=== PATIENT | male | born 1945 | race Caucasian/White ===

== ENCOUNTER 2017-04-03 10:54 | Outpatient (CLI) | payer MEDICARE, BC ==
[2017-04-03 18:57] LABS: BASOPHILS % (AUTO) 0.6 %; EOSINOPHILS # (AUTO) 0.4 10^3/uL (0.0-0.7); EOSINOPHILS % (AUTO) 6.3 %; HCT - HEMATOCRIT 44.6 % (42.0-52.0); HGB - HEMOGLOBIN 14.9 g/dL (14.0-18.0); LYMPHOCYTES # (AUTO) 1.8 10^3/uL (1.5-3.5); LYMPHOCYTES % (AUTO) 28.5 %; MEAN CORPUSCULAR HEMOGLOBIN 30.5 pg (27.0-31.0); MEAN CORPUSCULAR HGB CONC 33.4 g/dL (32.0-36.0); MEAN CORPUSCULAR VOLUME 91.4 fL (80.0-94.0); MEAN PLATELET VOLUME 8.5 fL (7.4-11.4); MONOCYTES # (AUTO) 0.5 10^3/uL (0.0-1.0); MONOCYTES % (AUTO) 7.8 %; NEUTROPHILS # (AUTO) 3.5 10^3/uL (1.5-6.6); NEUTROPHILS % (AUTO) 56.8 %; RED BLOOD COUNT 4.88 10^6/uL (4.70-6.10); RED CELL DISTRIBUTION WIDTH 14.5 % (12.0-15.0); UNCORRECTED WHITE BLOOD COUNT 6.2 x10^3/uL; WHITE BLOOD COUNT 6.2 x10^3/uL (4.8-10.8)
[2017-04-03 19:22] LABS: ALBUMIN/GLOBULIN RATIO 1.5 (1.0-2.2); BILIRUBIN,TOTAL 0.9 mg/dL (0.2-1.0); BUN - BLOOD UREA NITROGEN 17 mg/dL (6-20); CALCIUM 9.5 mg/dL (8.5-10.3); CARBON DIOXIDE - CO2 26 mmol/L (21-32); CHLORIDE 103 mmol/L (101-111); CHOL/HDL RATIO 3.1 (<5.0); CHOLESTEROL 150 mg/dL; GFR - MDRD 74 (>89); GLUCOSE 89 mg/dL (70-100); HDL CHOLESTEROL 48 mg/dL; LDL/HDL RATIO 1.6 (<3.6); POTASSIUM 3.7 mmol/L (3.5-5.0); SODIUM 137 mmol/L (135-145); TOTAL PROTEIN 7.7 g/dL (6.7-8.2); TRIGLYCERIDES 120 mg/dL; VLDL CHOLESTEROL 24 mg/dL
== END 2017-04-03 10:55 | disposition home or self-care (01) ==
LOC: LAB.F 10:54
PROVIDERS: ATTEND Physician Assistant Medical
DX: I10 Essential (primary) hypertension (principal); Z12.5 Encounter for screening for malignant neoplasm of prostate; E55.9 Vitamin D deficiency, unspecified; Z13.89 Encounter for screening for other disorder
CPT/HCPCS: 36415; 80053; 80061; 82306; 85025; G0103; 84153

== ENCOUNTER 2017-04-07 14:08 | Outpatient (CLI) | payer MEDICARE, BC ==
--- NOTE | 2017-04-12 12:32 | Ultrasound Report ---
BILATERAL INGUINAL ULTRASOUND: 04/07/2017 CLINICAL INDICATION: Palpable abnormality, right side. TECHNIQUE: Real-time scanning was performed with vaccine customer representative static images obtained. Ultrasound of the groins was performed. In the right groin, there is a right inguinal hernia, with neck measuring 1.4 cm. The hernia sac contains fat, without evidence of bowel herniation. Core Inspector images of the left side demonstrate no hernia. IMPRESSION: Right inguinal hernia, containing fat, without evidence of bowel herniation. TD: 04/07/2017 20:01 [facility]
== END 2017-04-07 14:09 | disposition home or self-care (01) ==
LOC: DI 14:08
PROVIDERS: ATTEND Physician Assistant Medical
DX: K40.90 Unilateral inguinal hernia, without obstruction or gangrene, not specified as recurrent (principal)
CPT/HCPCS: 76705

== ENCOUNTER 2017-05-29 14:05 | Outpatient (CLI) | payer MEDICARE, BC | END 2017-05-29 14:06 | disposition home or self-care (01) | LOC: SC 14:05 | PROVIDERS: ATTEND Nurse Practitioner Family | DX: G47.33 Obstructive sleep apnea (adult) (pediatric) (principal) | CPT/HCPCS: 99204; G0463; 99212 ==

== ENCOUNTER 2017-06-30 21:41 | Outpatient (CLI) | payer MEDICARE, BC | END 2017-06-30 21:42 | disposition home or self-care (01) | LOC: SC 21:41 | PROVIDERS: ATTEND Internal Medicine Pulmonary Disease | DX: G47.33 Obstructive sleep apnea (adult) (pediatric) (principal) | CPT/HCPCS: 95811 ==

== ENCOUNTER 2017-07-24 13:25 | Outpatient (CLI) | payer MEDICARE, BC | END 2017-07-24 13:26 | disposition home or self-care (01) | LOC: SC 13:25 | PROVIDERS: ATTEND Nurse Practitioner Family | DX: G47.33 Obstructive sleep apnea (adult) (pediatric) (principal) | CPT/HCPCS: 99214; G0463; 99212 ==

== ENCOUNTER 2017-09-05 13:14 | Outpatient (CLI) | payer MEDICARE, BC | END 2017-09-05 13:15 | disposition home or self-care (01) | LOC: SC 13:14 | PROVIDERS: ATTEND Nurse Practitioner Family | DX: G47.33 Obstructive sleep apnea (adult) (pediatric) (principal) | CPT/HCPCS: 99214 ==

== ENCOUNTER 2018-07-12 08:59 | Outpatient (CLI) | payer MEDICARE, BC ==
[2018-07-12 18:00] LABS: ALBUMIN 4.4 g/dL (3.2-5.5); ALBUMIN/GLOBULIN RATIO 1.6 (1.0-2.2); ALKALINE PHOSPHATASE 40 IU/L (42-121); ALT ALANINE AMINOTRANSFERASE 24 IU/L (10-60); AST ASPARTATE AMINOTRANSFERASE 21 IU/L (10-42); BILIRUBIN,TOTAL 0.9 mg/dL (0.2-1.0); BUN - BLOOD UREA NITROGEN 20 mg/dL (6-20); CALCIUM 9.2 mg/dL (8.5-10.3); CARBON DIOXIDE - CO2 27 mmol/L (21-32); CHLORIDE 103 mmol/L (101-111); CHOL/HDL RATIO 3.2 (<5.0); CHOLESTEROL 133 mg/dL; CREATININE 1.1 mg/dL (0.6-1.2); GFR - MDRD 66 (>89); GLUCOSE 101 mg/dL (70-100); HDL CHOLESTEROL 42 mg/dL; LDL CHOLESTEROL,CALCULATED 60 mg/dL; LDL/HDL RATIO 1.4 (<3.6); SODIUM 141 mmol/L (135-145); TOTAL PROTEIN 7.2 g/dL (6.7-8.2); VLDL CHOLESTEROL 31 mg/dL
== END 2018-07-12 09:00 | disposition home or self-care (01) ==
LOC: LAB.F 08:59
PROVIDERS: ATTEND Internal Medicine
DX: E78.5 Hyperlipidemia, unspecified (principal)
CPT/HCPCS: 36415; 80053; 80061; 83721

== ENCOUNTER 2018-09-18 12:57 | Outpatient (CLI) | payer MEDICARE, BC | END 2018-09-18 12:58 | disposition home or self-care (01) | LOC: SC 12:57 | PROVIDERS: ATTEND Nurse Practitioner Family | DX: G47.33 Obstructive sleep apnea (adult) (pediatric) (principal) | CPT/HCPCS: 99214; G0463; 99212 ==

== ENCOUNTER 2019-04-25 13:49 | Outpatient (CLI) | payer MEDICARE, BC | END 2019-04-25 13:50 | disposition EMS.NT | LOC: EMS 13:49 | PROVIDERS: ATTEND Surgery | DX: R07.9 Chest pain, unspecified (principal) ==

== ENCOUNTER 2019-09-18 11:52 | Outpatient (CLI) | payer MEDICARE, BC ==
--- NOTE | 2019-09-18 13:38 | SLEEP CARE CONSULTATION ---
Information from patient questionnaire entered by Arianna Collins. I have reviewed and concur with the information entered by Arianna Collins. This document represents the service I personally performed and the decisions made by me, Fior Avila, RN, MSN, DIRECTOR OF IN SERVICE EDUCATION. History of Present Illness Service Date and Time: 09/18/2019 1152 Previous diagnosis: Moderate, Obstructive Sleep Apnea-Hypopnea Syndrome AHI: 16.8 (in 2018) Reason for follow up: annual (last seen 2019) Equipment type: CPAP Equipment obtained from: [employer] (difficulty getting supplies and getting supplies online if unable to retrieve from [employer] - ie order for a year for tubing so ordered online) Mask style: Nasal Mask brand: Respironics (Dreamwear) Backup mask available: Yes (old mask ) Last cushion change: the 1st of the month Prior sleep studies: Yes Year and Where: 2018 - [facility] Type of Sleep Study: Polysomnography (Split night) CPAP Compliance Data - Data Reviewed with Patient Average duration of nightly device use: 6.5 Compliance rate %: 95 (180 days) Current pressure setting (cmH2O): 12 Humidity settin Heated hose settin Average residual AHI: 2.0 Average large leak: 25 min 55 sec Subjective Patient concerns: reports: mask leak noise (dislodges in sleep a couple times or more a night. ), nasal congestion (frequent and uses [employer] in evening - so does not have a problem using CPAP - he also changes his filter every two week. 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 denies: aerophagia, mask discomfort, air blowing in eyes, condensation in mask/hose, dry mouth, nose, throat, epistaxis Observed to snore while using device: No Current pressure setting perceived as: comfortable On therapy, patient: reports: sleeping better, awakening more refreshed, being more awake and alert during the day, more rested overall (this is significant - sleeps much better ). denies: drowsiness while driving Initial [place] Sleepiness Scale score: 7 (in 2018) Allergies and Home Medications Home medication list reviewed: No (no changes) Review of Systems Review of systems same as previous: Yes Physical Exam Height: 5 ft 5 in Weight: 195 lb Body Mass Index: 32.4 BMI Classification: Obese Impression and Plan 1. Obstructive Sleep Apnea-Hypopnea Syndrome, moderate, with good treatment compliance and good apnea control. On CPAP therapy, the patient has better sleep quality and is more rested overall. He is pleased with benefit of treatment. For patient supply concerns. Patient was notified that another DME can be used. I will have my curriculum development coordinator inform of DME options. A [facility] prescription will then be made. Patient advised to contact this office if he wishes to transfer after information given and he researches his choice. He is also advised to contact this office if further supply problems. To reduce increase in mask leaks after the past 3 months, he is advised to adjust headgear. He also stated he will try his back up headgear as this one a year old. Since his mask dislodges during the night a couple times a night that could be due to the way current headgear sitting, I will order the new adapted headgear that sits lower on base of skull. If continued problems with mask fit when he sleeps on his side, he was advised to consider a CPAP pillow which can be bought online. Patient has lost some weight. Currently patients BMI is 32.4 obesity class . I counseled patient how Obesity increases the risk of apnea, CPAP pressure requirements and overall health risks especially cardiovascular and diabetes. Thus patient is advised to continue to lose weight. Weight loss can be done with reducing portion size, reducing refined foods and balancing content with vegetables, fruit and protein. In addition tracking food intake will allow awareness of how to modify diet to achieve weight loss goals. Also eating more slowly will allow more awareness of food intake and enjoyment of food while assisting patient to modify intake at each meal. A diet consultation can be helpful in achieving optimal weight loss goals. Patient encouraged to discuss their weight loss goals with their PCP and consider a referral to a green marketer. The patient's CPAP pressure range should accommodate some weight loss.was changed to autoCPAP to accommodate for future weight loss. He does not want to try an autoCPAP range until he starts losing more weight. Symptoms to report for additional pressure adjustment discussed. Patient's apnea severity and rationale for treatment to reduce apnea, improve sleep quality and reduce hypertension, cardiovascular and cerebrovascular events was reviewed. * Continue CPAP pressure at 12 cmH2O * Transfer to new DME * New headgear * consider CPAP pillow * Notify me if snoring with mask or feeling that the pressure is too much or too little * Attempt to lose weight * Call this office if any problems using CPAP * Return for follow up in 1 year , or sooner if concerns arise Visit Type: Telehealth Video (to reduce risk of Covid 19 exposure) Video Type: [employer] Patient Location: Home Location of Provider: Home Patient agrees and consents to this telehealth visit type: Yes Patient agrees to have their insurance billed: Yes Time Spent with Patient (minutes): 28 Provider Statement: I spent 100% of the Telehealth Video Call with the patient with greater than 50% spent counseling the patient and coordination of care.
== END 2019-09-18 11:53 | disposition home or self-care (01) ==
LOC: SC 11:52
PROVIDERS: ATTEND Nurse Practitioner Family
DX: G47.33 Obstructive sleep apnea (adult) (pediatric) (principal); E66.9 Obesity, unspecified; Z68.32 Body mass index [BMI] 32.0-32.9, adult

== ENCOUNTER 2020-06-05 07:44 | Outpatient (CLI) | payer MEDICARE, BC ==
[2020-06-05 15:42] LABS: BASOPHILS # (AUTO) 0.1 10^3/uL (0.0-0.1); BASOPHILS % (AUTO) 1.1 %; EOSINOPHILS # (AUTO) 0.3 10^3/uL (0.0-0.7); EOSINOPHILS % (AUTO) 4.2 %; HGB - HEMOGLOBIN 13.9 g/dL (14.0-18.0); LYMPHOCYTES % (AUTO) 31.7 %; MEAN CORPUSCULAR HGB CONC 31.9 g/dL (32.0-36.0); MEAN CORPUSCULAR VOLUME 97.1 fL (80.0-94.0); MEAN PLATELET VOLUME 10.5 fL (7.4-11.4); MONOCYTES # (AUTO) 0.5 10^3/uL (0.0-1.0); MONOCYTES % (AUTO) 7.6 %; NEUTROPHILS # (AUTO) 3.4 10^3/uL (1.5-6.6); NEUTROPHILS % (AUTO) 55.2 %; PLT - PLATELET COUNT 214 10^3/uL (130-450); RED BLOOD COUNT 4.49 10^6/uL (4.70-6.10); RED CELL DISTRIBUTION WIDTH 13.6 % (12.0-15.0); WHITE BLOOD COUNT 6.2 x10^3/uL (4.8-10.8)
[2020-06-05 16:14] LABS: ALBUMIN 4.2 g/dL (3.2-5.5); ALBUMIN/GLOBULIN RATIO 1.6 (1.0-2.2); ALKALINE PHOSPHATASE 40 IU/L (42-121); ALT ALANINE AMINOTRANSFERASE 20 IU/L (10-60); AST ASPARTATE AMINOTRANSFERASE 18 IU/L (10-42); BILIRUBIN,TOTAL 0.6 mg/dL (0.2-1.0); BUN - BLOOD UREA NITROGEN 19 mg/dL (6-20); CALCIUM 9.4 mg/dL (8.5-10.3); CARBON DIOXIDE - CO2 27 mmol/L (21-32); CHLORIDE 103 mmol/L (101-111); CHOL/HDL RATIO 3.1 (<5.0); CHOLESTEROL 125 mg/dL; CREATININE 1.1 mg/dL (0.6-1.2); GLUCOSE 99 mg/dL (70-100); HDL CHOLESTEROL 40 mg/dL; LDL CHOLESTEROL,CALCULATED 61 mg/dL; LDL/HDL RATIO 1.5 (<3.6); TOTAL PROTEIN 6.9 g/dL (6.7-8.2); VLDL CHOLESTEROL 24 mg/dL
== END 2020-06-05 07:45 | disposition home or self-care (01) ==
LOC: LAB.S 07:44
PROVIDERS: ATTEND Internal Medicine
DX: I10 Essential (primary) hypertension (principal); E78.5 Hyperlipidemia, unspecified; Z12.5 Encounter for screening for malignant neoplasm of prostate
CPT/HCPCS: 36415; 80053; 80061; 85025; G0103; 83721; 84153

== ENCOUNTER 2020-08-14 11:19 | Day surgery (SDC) | payer MEDICARE, BC ==
[2020-08-14] MEDS ORDERED: LACTATED RINGERS 1,000 ML IV ONE ×2 (11:47→14:00)
[2020-08-14] MEDS ORDERED: MIDAZOLAM 2 MG/2 ML VIAL ONE ×2 (12:43→13:23)
[2020-08-14] MEDS ORDERED: fentaNYL 250 MCG/5 ML VIAL ONE (12:43)
[2020-08-14 14:16] VITALS: BP 137/78
== END 2020-08-14 11:20 | disposition home or self-care (01) ==
LOC: SDS 11:19
PROVIDERS: ATTEND Surgery
PROC: 0DBK8ZX Excision of Ascending Colon, Via Natural or Artificial Opening Endoscopic, Diagnostic (ICD-10-PCS; principal; 2020-08-14 12:30)
DX: Z12.11 Encounter for screening for malignant neoplasm of colon (principal); D12.2 Benign neoplasm of ascending colon; I10 Essential (primary) hypertension; G47.33 Obstructive sleep apnea (adult) (pediatric); Z80.0 Family history of malignant neoplasm of digestive organs; Z86.73 Personal history of transient ischemic attack (TIA), and cerebral infarction without residual deficits; N40.0 Benign prostatic hyperplasia without lower urinary tract symptoms
CPT/HCPCS: 45380; J3010; J7120

== ENCOUNTER 2020-08-25 14:21 | Outpatient (CLI) | payer MEDICARE, BC ==
--- NOTE | 2020-08-25 14:34 | SLEEP CARE CONSULTATION ---
Information from patient questionnaire entered by Nikita Al. I have reviewed and concur with the information entered by Nikita Al. This document represents the service I personally performed and the decisions made by , Benita Cheng ARNP. History of Present Illness Service Date and Time: 08/25/2020 1421 Previous diagnosis: Moderate, Obstructive Sleep Apnea-Hypopnea Syndrome AHI: 16.8 (in 2018) Reason for follow up: annual (Last seen 08/2019) Equipment type: CPAP Equipment obtained from: [employer] (getting supplies as needed) Mask style: Nasal Backup mask available: Yes (old mask) Last cushion change: 4.5 weeks Prior sleep studies: Yes Year and Where: 2018 - [facility] HPI additional information: KERLINE LEO was diagnosed to have moderate, AHI 16.8, obstructive sleep apnea-hypopnea syndrome and returns via Telehealth visit today for CPAP therapy annual follow-up. CPAP Compliance Data - Data Reviewed with Patient Average duration of nightly device use: 6 h 29 min Compliance rate %: 86.1 Current pressure setting (cmH2O): 12 Humidity settin Heated hose settin Average residual AHI: 1.6 Average large leak: 6 min Subjective Missed days of use due to: reports: travel, other (using backup at sister's house in [place]) Patient concerns: reports: dry mouth, nose, throat (sometimes when uses older machine). denies: aerophagia, mask discomfort, air blowing in eyes, mask leak noise, condensation in mask/hose, nasal congestion, epistaxis, other Observed to snore while using device: No Current pressure setting perceived as: comfortable On therapy, patient: reports: sleeping better, awakening more refreshed, being more awake and alert during the day, more rested overall. denies: drowsiness while driving Initial [place] Sleepiness Scale score: 7 (in 2018) Current [place] Sleepiness Scale score: 7 Allergies and Home Medications Home medication list reviewed: Yes (No changes) Review of Systems Review of systems same as previous: Yes (no changes) Physical Exam Vital signs obtained and entered by: Telehealth visit to reduce exposure during covid pandemic Height: 5 ft 5 in Impression and Plan 1. Obstructive Sleep Apnea-Hypopnea Syndrome, moderate, with good treatment compliance and good apnea control. On CPAP therapy, the patient has better sleep quality and is more rested overall. He has significant improvement of his sleep apnea and is satisfied with his treatment. He has no issues with mask use and denies significant issues with dry mouth, nasal congestion, aerophagia, bloody noises or skin irritation. Patient's apnea severity and rationale for treatment to reduce apnea, improve sleep quality and reduce cardiovascular and cerebrovascular events was reviewed. I also reviewed the benefit of consistent device use of CPAP for hypertension. * Continue auto CPAP pressure at 12 cmH2O * Notify me if snoring with mask or feeling that the pressure is too much or too little * Attempt to lose weight * Call this office if any problems using CPAP * Return for follow up in 1 year, or sooner if concerns arise Counseling Topics: Spare mask, Weight loss health impact Visit Type: Telehealth Video Video Type: [employer] Patient Location: Care Facility ('s room) Location of Provider: Office Patient agrees and consents to this telehealth visit type: Yes Patient agrees to have their insurance billed: Yes Time Spent with Patient (minutes): 21 Provider Statement: I spent 100% of the Telehealth Video Call with the patient with greater than 50% spent counseling the patient and coordination of care.
== END 2020-08-25 14:22 | disposition home or self-care (01) ==
LOC: SC 14:21
PROVIDERS: ATTEND Nurse Practitioner Family
DX: G47.33 Obstructive sleep apnea (adult) (pediatric) (principal)

== ENCOUNTER 2020-10-28 08:00 | Outpatient (CLI) | payer MEDICARE, BC ==
--- NOTE | 2020-10-28 15:21 | XRAY Report ---
PROCEDURE: Hip w/Pelvis 2-3V RT INDICATIONS: RIGHT HIP PAIN TECHNIQUE: AP pelvis with lateral view(s) of the bilateral hip(s). COMPARISON: None. FINDINGS: Bones: No fractures or dislocations. Pelvic ring appears intact. No suspicious bony lesions. Mild to moderate left and mild right degenerative hip joint space narrowing is present. Small periarticul ar osteophytes. No erosions. Soft tissues: The visualized bowel gas pattern is normal. No suspicious soft tissue calcifications. 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 Reviewed by: Olinda Montez MD on 10/28/2020 3:19 PM PDT Approved by: Olinda Montez MD on 10/28/2020 3:19 PM PDT Station ID: [id number]
== END 2020-10-28 23:59 | disposition home or self-care (01) ==
LOC: DI.S 08:00
PROVIDERS: ATTEND Emergency Medicine
DX: M16.0 Bilateral primary osteoarthritis of hip (principal)

== ENCOUNTER 2021-07-03 11:57 | Outpatient (CLI) | payer MEDICARE, BC ==
[2021-07-03 15:49] LABS: BASOPHILS % (AUTO) 0.7 %; EOSINOPHILS # (AUTO) 0.2 10^3/uL (0.0-0.7); EOSINOPHILS % (AUTO) 3.4 %; HCT - HEMATOCRIT 43.3 % (42.0-52.0); HGB - HEMOGLOBIN 14.2 g/dL (14.0-18.0); LYMPHOCYTES # (AUTO) 1.8 10^3/uL (1.5-3.5); LYMPHOCYTES % (AUTO) 29.5 %; MEAN CORPUSCULAR HEMOGLOBIN 30.7 pg (27.0-31.0); MEAN CORPUSCULAR HGB CONC 32.8 g/dL (32.0-36.0); MEAN CORPUSCULAR VOLUME 93.7 fL (80.0-94.0); MEAN PLATELET VOLUME 10.1 fL (7.4-11.4); MONOCYTES # (AUTO) 0.5 10^3/uL (0.0-1.0); MONOCYTES % (AUTO) 8.8 %; NEUTROPHILS # (AUTO) 3.5 10^3/uL (1.5-6.6); NEUTROPHILS % (AUTO) 57.4 %; PLT - PLATELET COUNT 223 10^3/uL (130-450); RED BLOOD COUNT 4.62 10^6/uL (4.70-6.10); RED CELL DISTRIBUTION WIDTH 14.3 % (12.0-15.0); WHITE BLOOD COUNT 6.1 x10^3/uL (4.8-10.8)
[2021-07-03 17:04] LABS: ALBUMIN 4.4 g/dL (3.2-5.5); ALBUMIN/GLOBULIN RATIO 1.5 (1.0-2.2); ALKALINE PHOSPHATASE 39 IU/L (42-121); ALT ALANINE AMINOTRANSFERASE 29 IU/L (10-60); AST ASPARTATE AMINOTRANSFERASE 21 IU/L (10-42); BILIRUBIN,TOTAL 0.8 mg/dL (0.2-1.0); BUN - BLOOD UREA NITROGEN 20 mg/dL (6-20); CALCIUM 9.9 mg/dL (8.5-10.3); CARBON DIOXIDE - CO2 29 mmol/L (21-32); CHLORIDE 102 mmol/L (101-111); CHOL/HDL RATIO 3.2 (<5.0); CHOLESTEROL 139 mg/dL; CREATININE 1.1 mg/dL (0.6-1.2); GFR - MDRD 65 (>89); GLUCOSE 97 mg/dL (70-100); HDL CHOLESTEROL 43 mg/dL; LDL CHOLESTEROL,CALCULATED 63 mg/dL; LDL/HDL RATIO 1.5 (<3.6); POTASSIUM 3.9 mmol/L (3.5-5.0); SODIUM 141 mmol/L (135-145); TOTAL PROTEIN 7.4 g/dL (6.7-8.2); TRIGLYCERIDES 163 mg/dL; VLDL CHOLESTEROL 33 mg/dL
== END 2021-07-03 11:58 | disposition home or self-care (01) ==
LOC: LAB.S 11:57
PROVIDERS: ATTEND Internal Medicine
DX: I10 Essential (primary) hypertension (principal); E78.5 Hyperlipidemia, unspecified
CPT/HCPCS: 36415; 80053; 80061; 83721; 85025

== ENCOUNTER 2021-10-27 09:59 | Outpatient (CLI) | payer MEDICARE, BC ==
--- NOTE | 2021-10-27 09:56 | SLEEP CARE CONSULTATION ---
Information from patient questionnaire entered by Migue Mcknight MA. I have reviewed and concur with the information entered by Migue Mcknight MA. This document represents the service I personally performed and the decisions made by , Benita Cheng ARNP. History of Present Illness Service Date and Time: 10/27/2021 0940 Previous diagnosis: Moderate, Obstructive Sleep Apnea-Hypopnea Syndrome AHI: 16.8 (in 2018) Reason for follow up: annual (LAST SEEN 08/2020, SULEMA, [place] 07/31/2017, ) Equipment type: CPAP Equipment obtained from: [employer] (getting supplies as needed) Mask style: Nasal Mask brand: Respironics (Dreamwear) Backup mask available: Yes (old mask) Last cushion change: yesterday Prior sleep studies: Yes [facility] and Where: [facility] HPI additional information: KERLINE LEO was diagnosed to have moderate, AHI 16.8, obstructive sleep apnea-hypopnea syndrome and returns via video telehealth visit today for CPAP therapy annual follow-up. Sleep Study - Results Prior sleep studies: Yes Year and Where: [facility] Compliance Data - Data Reviewed with Patient Average duration of nightly device use: 6 HOURS 23 MINUTES Compliance rate %: 97.8 (07/29/21-10/26/21; 90 days; 89/90 days used) Current pressure setting (cmH2O): 12 Humidity settin Heated hose settin Average residual AHI: 0.8 Average large leak: 30 SECONDS Subjective Patient concerns: reports: mask leak noise (only with side sleeping). denies: a erophagia, mask discomfort, air blowing in eyes, condensation in mask/hose, nasal congestion, dry mouth, nose, throat, epistaxis, other Observed to snore while using device: No Current pressure setting perceived as: comfortable On therapy, patient: reports: sleeping better, awakening more refreshed, being more awake and alert during the day, more rested overall. denies: drowsiness while driving Initial [place] Sleepiness Scale score: 7 (in 2018) Current [place] Sleepiness Scale score: 3 Allergies and Home Medications Home medication list reviewed: Yes (no changes) Allergy and home medication list: Allergies Penicillins Allergy (Unknown, Verified 08/14/20 11:16) Unknown Review of Systems Review of systems same as previous: Yes (no changes) Physical Exam Vital signs obtained and entered by: ANA PAULA Mcknight Height: 5 ft 5 in Weight: 203 lb (pt report) Body Mass Index: 33.7 BMI Classification: Obese Impression and Plan 1. Obstructive Sleep Apnea-Hypopnea Syndrome, moderate, with good treatment compliance and good apnea control. On CPAP therapy, the patient has better sleep quality and is more rested overall. Patient states his pressure is comfortable and he has significant improvement in his sleep apnea. Patient denies problems with oral dryness, nasal congestion, epistaxis, skin irritation or aerophagia. Patient has a DreamStation that is on the recall. He has registered this device about a year ago and still has not received a replacement. He denies any debris noted in his machine or any issues using it. He will continue to use it until he receives his replacement device or when he is eligible for a new device and July 2022. Patient's apnea severity and rationale for treatment to reduce apnea, improve sleep quality and reduce cardiovascular and cerebrovascular events was reviewed. I also reviewed the benefit of consistent device use of CPAP for hypertension. 2. Obesity, unspecified. Currently patients BMI is 33.7. Obesity increases the risk of apnea, CPAP pressure requirements and overall health risks especially cardiovascular and diabetes. Patient should try to lose weight. * Continue CPAP pressure at 12 cmH2O * Notify me if snoring with mask or feeling that the pressure is too much or too little * Attempt to lose weight * Call this office if any problems using CPAP * Return for follow up in 1 year, or sooner if concerns arise Counseling Topics: Spare mask, Weight loss health impact Visit Type: Telehealth Video ([phone]) Video Type: [employer] Patient Location: Home Location of Provider: Office Patient agrees and consents to this telehealth visit type: Yes Patient agrees to have their insurance billed: Yes Time Spent with Patient (minutes): 13 Provider Statement: I spent 100% of the Telehealth Video Call with the patient with greater than 50% spent counseling the patient and coordination of care.
== END 2021-10-27 10:00 | disposition home or self-care (01) ==
LOC: SC 09:59
PROVIDERS: ATTEND Nurse Practitioner Family
DX: G47.33 Obstructive sleep apnea (adult) (pediatric) (principal); E66.9 Obesity, unspecified; Z68.33 Body mass index [BMI] 33.0-33.9, adult

== ENCOUNTER 2022-10-20 15:56 | Outpatient (CLI) | payer MEDICARE, BC ==
--- NOTE | 2022-10-20 15:39 | SLEEP CARE CONSULTATION ---
Information from patient questionnaire entered by Carrie Hardy. I have reviewed and concur with the information entered by Carrie Hardy. This document represents the service I personally performed and the decisions made by me, Benita Cheng ARNP. History of Present Illness Service Date and Time: 10/20/2022 1500 Previous diagnosis: Moderate, Obstructive Sleep Apnea-Hypopnea Syndrome AHI: 16.8 (in 2018) Reason for follow up: annual (LAST SEEN 10/2021) Equipment type: CPAP ([employer]ADE Dreamstation 2, s/u 01/14/2022) Equipment obtained from: [employer] (getting supplies as needed) Mask style: Nasal Mask brand: Respironics (Dreamwear) Backup mask available: Yes (old mask) Last cushion change: 1 month [facility]: Yes [facility] additional information: CHONG LEO was diagnosed to have moderate, AHI 16.8, obstructive sleep apnea-hypopnea syndrome and returns via video telehealth visit today for CPAP therapy annual follow-up. Sleep Study - Results Prior sleep studies: Yes [facility] Compliance Data - Data Reviewed with Patient Average duration of nightly device use: 6 hours 4 minutes Compliance rate %: 57.8 (115/180 days used) Current pressure setting (cmH2O): 12 Average residual AHI: 0.8 Average large leak: 4 secs Compliance data discussion: He states he is using the old Dreamstation at his [place] [facility] and his Dreamstation 2 when he is in [place]. He states he uses it every night. Occasional short night because he falls asleep without mask on. Subjective Missed days of use due to: reports: other (falling asleep without mask occasionally; using other machine) Patient concerns: reports: dry mouth, nose, throat, other (loses blue tooth pairing often). denies: aerophagia, mask discomfort, air blowing in eyes, mask leak noise, condensation in mask/hose, nasal congestion, epistaxis Observed to snore while using device: No Current pressure setting perceived as: comfortable On therapy, patient: reports: sleeping better, awakening more refreshed, being more awake and alert during the day, more rested overall. denies: drowsiness while driving Initial [place] Sleepiness Scale score: 7 (in 2018) Current [place] Sleepiness Scale score: 7 (10/20/22) Allergies and Home Medications Known drug allergies: Yes (penicillins) Drug allergies reviewed: Yes Home medication list reviewed: Yes (no changes) Allergy and home medication list: Allergies Penicillins Allergy (Unknown, Verified 10/19/22 14:33) Unknown Review of Systems Review of systems same as previous: Yes (no changes) Physical Exam Vital signs obtained and entered by: CARRIE Cifuentes MA Height: 5 ft 4 in (PER PT) Weight: 195 lb (PER PT) Body Mass Index: 33.5 BMI Classification: Obese Impression and Plan 1. Obstructive Sleep Apnea-Hypopnea Syndrome, moderate, with good treatment compliance and good apnea control. On CPAP therapy, the patient has better sleep quality and is more rested overall. Chong got a replacement Dreamstation 2 but he does not really like how it works. He still uses his Dreamstation half the time when he goes to his home in [place]. Patient has significant improvement of their sleep apnea and is satisfied with current CPAP therapy. Patient denies problems with oral dryness, nasal congestion, epistaxis, skin irritation or aerophagia. Patient's apnea severity and rationale for treatment to reduce apnea, improve sleep quality and reduce cardiovascular and cerebrovascular events was reviewed. I also reviewed the benefit of consistent device use of CPAP for hypertension. 2. Obesity, unspecified. Currently patients BMI is 33.5. Obesity increases the risk of apnea, CPAP pressure requirements and overall health risks especially cardiovascular and diabetes. Thus patient is advised to lose weight. * Continue CPAP pressure at 12 cmH2O * Update supplies * Notify me if snoring with mask or feeling that the pressure is too much or too little * Attempt to lose weight * Call this office if any problems using CPAP * Return for follow up in 1 year, or sooner if concerns arise Counseling Topics: Spare mask, Weight loss health impact Visit Type: Telehealth Video Video Type: [employer] Patient Location: Home Location of Provider: Office Patient agrees and consents to this telehealth visit type: Yes Patient agrees to have their insurance billed: Yes Time Spent with Patient (minutes): 21 Provider Statement: I spent 100% of the Telehealth Video Call with the patient with greater than 50% spent counseling the patient and coordination of care.
== END 2022-10-20 15:57 | disposition home or self-care (01) ==
LOC: SC 15:56
PROVIDERS: ATTEND Nurse Practitioner Family
DX: G47.33 Obstructive sleep apnea (adult) (pediatric) (principal); E66.9 Obesity, unspecified; Z68.33 Body mass index [BMI] 33.0-33.9, adult

== ENCOUNTER 2023-03-26 16:13 | Emergency (ER) | payer MEDICARE, BC ==
[2023-03-26 16:42] VITALS: BP 177/76; O2SAT 97
--- NOTE | 2023-03-26 17:11 | ED Physician Documentation ---
History of Present Illness - Stated complaint Stated Complaint: - Chief complaint Chief Complaint: Abd Pain - History obtained from History obtained from: Patient - History of Present Illness Timing: Today Pain level max: 0 Pain level now: 0 - Additonal information Additional information: 77-year-old male has a history of prostate cancer, he occasionally self catheterizes himself. He states he tried to catheterize himself today and only a small amount of urine came out so came in for evaluation. No abdominal pain. No urge to urinate. He states he has been urinating freely into his diaper. Review of Systems Constitutional: denies: Fever, Chills GI: denies: Vomiting, Diarrhea Musculoskeletal: denies: Neck pain, Back pain Neurologic: denies: Headache PD PAST MEDICAL HISTORY - Past Medical History Past Medical History: Yes Cardiovascular: Hypertension, High cholesterol GI: GERD : Benign prostate hypertrophy, Other Psych: Depression, Anxiety Musculoskeletal: Osteoarthritis Other Past Medical History: prostate cancer - Past Surgical History Past Surgical History: Yes General: Other - Present Medications Home Medications: Ambulatory Orders Medication Instructions Recorded Confirmed Doxazosin Mesylate [Cardura Xl] 8 mg PO DAILY 08/14/20 10/20/22 Fluticasone [Flonase] 1 spray CHEPE DAILY 08/14/20 10/20/22 Meloxicam [Mobic] 1 tablet PO DAILY PRN 08/14/20 10/20/22 Niacin [Niaspan] 500 mg PO DAILY 08/14/20 10/20/22 Simvastatin [Zocor] 40 mg PO DAILY 08/14/20 10/20/22 Tizanidine HCl [Zanaflex] 2 mg PO TID 08/14/20 10/20/22 buPROPion HCL [Bupropion Xl] 150 mg PO DAILY 08/14/20 10/20/22 - Allergies Allergies/Adverse Reactions: Allergies Allergy/AdvReac Type Severity Reaction Status Date / Time Penicillins Allergy Unknown Unknown Verified 03/26/23 16:24 - Social History Does the pt smoke?: No Smoking Status: Never smoker Does the pt drink ETOH?: Yes Does the pt have substance abuse?: No PD ED PE NORMAL - Vitals Vital signs reviewed: Yes - General General: Alert and oriented X 3, No acute distress - HEENT HEENT: Moist mucous membranes - Neck Neck: Supple, no meningeal sign - Cardiac Cardiac: RRR, Strong equal pulses - Respiratory Respiratory: No respiratory distress, Clear bilaterally - Abdomen Abdomen: Soft, Non tender, Non distended - Back Back: No spinal TTP - Derm Derm: Warm and dry, No rash - Extremities Extremities: No edema - Neuro Neuro: Alert and oriented X 3 Results - Vitals Vitals: Vital Signs - 24 hr 03/26/23 16:17 Temperature 37.1 C Heart Rate 91 Respiratory 15 Rate Blood Pressure 177/76 H O2 Saturation 97 Oxygen O2 Source Room air PD Medical Decision Making - ED course Complexity details: reviewed results, considered differential, d/w patient ED course: Patient is well-appearing, nontoxic. Afebrile. Bladder scan shows a bladder volume of 22 mL. Bedside ultrasound confirms an empty bladder. Patient has no other complaints at this time. There is no evidence of urinary retention. No emergency medical condition at this time. Patient counseled regarding signs and symptoms for which I believe and urgent re-evaluation would be necessary. Patient with good understanding of and agreement to plan and is comfortable going home at this time This document was made in part using voice recognition software. While efforts are made to proofread this document, sound alike and grammatical errors may occur. Departure - Departure Disposition: 01 Home, Self Care Clinical Impression: Encounter for medical screening examination Condition: Good Instructions: ED Screening Exam Medical Nonurgent Follow-Up: ДМИТРИЙ NORRIS ARNP [Primary Care Provider] - Comments: You do not have any evidence of urinary retention today. Your bladder scan shows a bladder volume of 22 mL. Please follow-up with your doctor as needed for any further care. Return if you worsen. Forms: PCP List Discharge Date/Time: 03/26/23 17:30
== END 2023-03-26 17:30 | disposition home or self-care (01) ==
LOC: ED 16:13
DX: Z13.9 Encounter for screening, unspecified (principal); R39.198 Other difficulties with micturition; D49.59 Neoplasm of unspecified behavior of other genitourinary organ
CPT/HCPCS: 99282; 99284

== ENCOUNTER 2023-10-20 12:55 | Outpatient (CLI) | payer MEDICARE, BC ==
--- NOTE | 2023-10-20 11:36 | SLEEP CARE CONSULTATION ---
Information from patient questionnaire entered by Carrie Hardy. I have reviewed and concur with the information entered by Carrie Hardy. This document represents the service I personally performed and the decisions made by me, Benita Cheng ARNP. History of Present Illness Service Date and Time: 10/20/2023 1100 Previous diagnosis: Moderate, Obstructive Sleep Apnea-Hypopnea Syndrome AHI: 16.8 (in 2018) Reason for follow up: annual (LAST SEEN 09/2022) Equipment type: CPAP (JADE Dreamstation 2, s/u 01/14/2022) Equipment obtained from: [employer] (getting supplies as needed) Mask style: Nasal Mask brand: Respironics (Dreamwear) Backup mask available: Yes Last cushion change: 2 weeks Prior sleep studies: Yes Year and Where: 2018 - [email or web address] HPI additional information: KERLINE LEO was diagnosed to have moderate, AHI 16.8, obstructive sleep apnea-hypopnea syndrome and returns via video appointment today for CPAP therapy annual follow-up. Sleep Study - Results Prior sleep studies: Yes Year and Where: 2018 - [facility] Compliance Data - Data Reviewed with Patient Average duration of nightly device use: 5 HRS 27 MINS 38 SECS Compliance rate %: 75.6 (10/17/22-10/16/23; 288/365 days used) Current pressure setting (cmH2O): 12 Average residual AHI: 1.3 Central apnea: 0.3 Obstructive apnea: 0.3 Hypopnea: 0.7 Average large leak: 2 mins 38 secs Subjective Missed days of use due to: reports: other (forgot to put mask on) Patient concerns: reports: dry mouth, nose, throat (with Dreamstation 2), other (auto shutoff if off after update). denies: aerophagia, mask discomfort, air b lowing in eyes, mask leak noise, condensation in mask/hose, nasal congestion, epistaxis Observed to snore while using device: No Current pressure setting perceived as: comfortable On therapy, patient: reports: sleeping better, awakening more refreshed, being more awake and alert during the day, more rested overall. denies: drowsiness while driving Initial [place] Sleepiness Scale score: 7 (in 2018) Current [place] Sleepiness Scale score: 1 Allergies and Home Medications Known drug allergies: Yes (as listed) Drug allergies reviewed: Yes Home medication list reviewed: Yes (no changes) Allergy and home medication list: Allergies Penicillins Allergy (Unknown, Verified 10/18/23 09:11) Unknown Review of Systems Review of systems same as previous: Yes (Mar 16, dx prostate cancer hormone & radiation tx) Physical Exam Vital signs obtained and entered by: Benita Mckeon NP Height: 5 ft 4 in Weight: 194 lb (per pt) Body Mass Index: 33.3 BMI Classification: Obese Impression and Plan 1. Obstructive Sleep Apnea-Hypopnea Syndrome, moderate, with good treatment compliance and good apnea control. On CPAP therapy, the patient has better sleep quality and is more rested overall. Sahil has significant improvement of his sleep apnea and is satisfied with CPAP therapy. He says he has been sleeping more but he is on hormone therapy for prostate cancer. Patient denies problems with oral dryness, nasal congestion, epistaxis, skin irritation or aerophagia. Patient's apnea severity and rationale for treatment to reduce apnea, improve sleep quality and reduce cardiovascular and cerebrovascular events was reviewed. I also reviewed the benefit of consistent device use of CPAP for hypertension. 2. Obesity, unspecified. Currently patients BMI is 33.3. Obesity increases the risk of apnea, CPAP pressure requirements and overall health risks especially cardiovascular and diabetes. Thus patient is advised to lose weight. * Continue CPAP pressure at 12 cmH2O * Update supply prescription * Notify me if snoring with mask or feeling that the pressure is too much or too little * Attempt to lose weight * Call this office if any problems using CPAP * Return for follow up in 12 months, or sooner if concerns arise Counseling Topics: Spare mask, Weight loss health impact Prescriptions: Device supplies Follow up with Sleep Care in: 1 year Visit Type: Telehealth Video Video Type: [employer] Patient Location: Home ([place]) Location of Provider: Office Patient agrees and consents to this telehealth visit type: Yes Patient agrees to have their insurance billed: Yes Time Spent with Patient (minutes): 20 Provider Statement: I spent 100% of the Telehealth Video Call with the patient with greater than 50% spent counseling the patient and coordination of care.
== END 2023-10-20 12:56 | disposition home or self-care (01) ==
LOC: SC 12:55
PROVIDERS: ATTEND Nurse Practitioner Family
DX: G47.33 Obstructive sleep apnea (adult) (pediatric) (principal); E66.9 Obesity, unspecified; Z68.33 Body mass index [BMI] 33.0-33.9, adult